=== PATIENT | female | born 1960 | race African-American/Black ===

== ENCOUNTER 2025-07-26 12:22 | Emergency (ER) | payer MEDICARE, MEDICAID ==
[~2025-07-26] VITALS: Ht 167.6 cm; Wt 90.0 kg
[2025-07-26 12:39] VITALS: TEMP 97.1; O2SAT 96
[2025-07-26] MEDS: ONDANSETRON HCL 4MG/2ML INJ IV ONE (13:28)
[2025-07-26] MEDS: KETOROLAC 15MG/ML VIAL IV ONE (13:28)
[2025-07-26] MEDS: SODIUM CHLORIDE 0.9% 1,000 ML IV ONE (13:28)
[2025-07-26 13:49] LABS: BASOPHILS % 0.7 % (0.0-2.0); EOSINOPHILS % 1.0 % (0.0-5.0); HEMATOCRIT. 37.9 % (36.0-48.0); HEMOGLOBIN. 11.8 g/dL (12.0-16.0); LYMPHOCYTES % 29.6 % (20.0-50.0); MEAN PLATELET VOLUME 8.7 fl (7.4-10.4); MONOCYTES % 4.4 % (2.0-8.0); NEUTROPHILS % 64.3 % (40.0-76.0); PLATELET 281 x1000/uL (130-400); RED BLOOD CELL COUNT 4.68 mill/uL (4.2-5.4); RED CELL DISTRIBUTION WIDTH 16.4 % (11.6-14.6)
[2025-07-26 14:04] LABS: INR 1.0
[2025-07-26 14:05] LABS: CREATININE 1.4 mg/dL (0.6-1.0)
[2025-07-26 14:06] LABS: PROTEIN TOTAL 7.3 g/dL (6.0-8.3); UREA NITROGEN BLOOD 18 mg/dL (9-23)
[2025-07-26 14:07] LABS: ASPARTATE AMINOTRANSFERASE 19 IU/L (<34); BILIRUBIN DIRECT 0.2 mg/dL (<=3.0)
[2025-07-26 14:08] LABS: BILIRUBIN TOTAL 0.7 mg/dL (0.1-1.0)
[2025-07-26 14:21] LABS: TROPONIN I HIGH SENSITIVITY 16 ng/L (3.0-34)
[2025-07-26 14:48] LABS: CLARITY URINE CLEAR (CLEAR); COLOR URINE YELLOW (YELLOW); GLUCOSE URINE TRACE (NEGATIVE); KETONES URINE NEGATIVE (NEGATIVE); LEUKOCYTE ESTERASE URINE 2+ (NEGATIVE); NITRITE URINE NEGATIVE (NEGATIVE); OCCULT BLOOD URINE NEGATIVE (NEGATIVE); PH URINE 6.5 (4.5-8.0); PROTEIN URINE NEGATIVE (NEGATIVE); SPECIFIC GRAVITY URINE 1.014 (1.005-1.030); UROBILINOGEN URINE 0.2 E.U./dL (0.2-1.0)
[2025-07-26 14:59] LABS: BACTERIA URINE 1+; RBC URINE 0-2 /hpf (0-2); SQUAMOUS EPITHELIAL CELL URINE 2+ /lpf (RARE/1+); YEAST URINE NONE SEEN
[2025-07-26] MEDS ORDERED: CEPH500C2 MT (15:57)
[2025-07-26] MEDS: CEFTRIAXONE 1GM/50ML 50 ML IV NR (16:06)
[2025-07-26 16:40] VITALS: BP 134/64; PULSE 62; RESP 16; O2SAT 98
== END 2025-07-26 16:40 | disposition admitted as inpatient to this hospital (09) ==
LOC: ER 12:22 → CANBEDREQ 16:00 → ER 16:40
DX: R42 Dizziness and giddiness (principal); R51.9 Headache, unspecified; N39.0 Urinary tract infection, site not specified; I10 Essential (primary) hypertension; E11.9 Type 2 diabetes mellitus without complications; R10.84 Generalized abdominal pain; J44.9 Chronic obstructive pulmonary disease, unspecified; Z86.73 Personal history of transient ischemic attack (TIA), and cerebral infarction without residual deficits; Z79.899 Other long term (current) drug therapy; Z98.890 Other specified postprocedural states
CPT/HCPCS: 99285; 70450; 96365; 96375; 71045; 96361; 80076; 80048; 81003; 83690; 85025; 85610; 85730; 84484; 36415; 74176; 93005; J1885; J0696; J2405; J7030